=== PATIENT | female | born 1965 | race African-American/Black ===

== ENCOUNTER 2024-10-24 09:35 | Inpatient (IN) | payer MEDICAID, OTHER ==
[~2024-10-24] VITALS: Ht 162.6 cm; Wt 84.9 kg
--- NOTE | 2024-10-24 09:50 | ECG ---
[facility] Test Date: 2024-10-24 Test Time: 09:34:42 Pat Name: SHARON ANDERS Department: ED Room: Gender: F [employer] Service Sales Exec: RAMÍREZ : 1965 Requested By: JAREK MCNEIL Order Number: [id number] Reading MD: Amado Marcial Measurements Intervals [place]bin Rate: 70 P: 16 AK: 131 QRS: 35 QRSD: 63 T: 234 QT: 527 QTc: 569 Interpretive Statements Sinus rhythm Borderline repolarization abnormality Prolonged QT interval Electronically Signed On 10-24-2024 18:49:09 PDT by Amado Marcial Please click the below link to view image of tracing.
--- NOTE | 2024-10-24 10:19 | ED.PDOC ---
History of Present Illness HPI Comments 58 y/o F, with no significant history, is BIBA for c/c of nonradiating, substernal chest pain, with associated shortness of breath and nausea. Patient endorses on 3x day history of progressively worsening symptoms following initial, unprovoked and atraumatic onset. Patient received 162mg of ASA by EMS personal after taking some, herself, prior to calling, in addition to 0.4mg NTG, with moderate improvement. No endorsement of any recent travel, injuries, stressors, strenuous activities, sick contact, or pertinent medical, surgical, or social history. Positive family history of cardiac disease. Denial of any nausea, vomiting, fever, chills, or further associated symptoms. Chief Complaint: Chest Pain Time Seen by MD: 09:30 Primary Care Provider: NONE Reviewed Notes: Nurses Notes, Wind Turbine Engineer Notes, Medications, Allergies Allergies: Coded Allergies: NO KNOWN ALLERGIES (Unverified , 10/20/12) Information Source: Patient, Emergency Med Personnel Mode of Arrival: EMS Severity: Moderate Timing: Days Duration: Since onset Prehospital treatment: 12 Lead EKG, Accucheck, ASA, Um Nurse, NTG Past Medical History PAST MEDICAL HISTORY: UTI'S Surgical History: Denies all surgeries ENTERPRISE MOBILITY ARCHITECT History: Denies all ENTERPRISE MOBILITY ARCHITECT Hx Family History Family History: Family hx of heart marilyn Social History Smoker: Non-Smoker Alcohol: Denies ETOH Use Drugs: Denies Drug Use Lives In: Home All Other Systems: Reviewed and Negative (Comprehensive systems review obtained and negative except for what is stated in the HPI.) Physical Exam General Appearance: Moderate Distress HEENT: Normal ENT Inspection, Pharynx Normal, TMs Normal Neck: Full Range of Motion, Non-Tender, Normal, Normal Inspection Respiratory: Chest Non-Tender, Lungs Clear, No Accessory Muscle Use, No Respiratory Distress, Normal Breath Sounds Cardiovascular: No Edema, No JVD, No Murmur, No Gallop, Normal Peripheral Pulses, Regular Rate/Rhythm Breast Exam: Deferred Gastrointestinal: No Organomegaly, Non Tender, No Pulsatile Mass, Normal Bowel Sounds, Soft Genitalia: Deferred Pelvic: Deferred Rectal: Deferred Extremities: No calf tenderness, Normal capillary refill, Normal inspection, Normal range of motion, Non-tender, No pedal edema Musculoskeletal : Apperance: Normal Neurologic: Alert, sawmill supervisor II-XII nml as Tested, No Motor Deficits, Normal Affect, Normal Mood, No Sensory Deficits Cerebellar Function: NOT DONE Reflexes: NOT DONE Skin: Dry, Normal Color, Warm Peripheral Pulses: 3+ Radial (R), 3+ Radial (L) Lymphatic: No Adenopathy Was a procedure done? Was a procedure done?: No EKG EKG : Cardiac Rhythm: NSR Differential Dx Considerations may include: [place], PE, ACS, URI, PNA, angina, anxiety, viral syndrome, gastritis, among others X-Ray, Labs, Meds, VS Vital Signs Date Time Temp Pulse Resp B/P (MAP) Pulse Ox O2 Delivery O2 Flow Rate FiO2 10/24/24 12:14 97.2 57 16 136/71 (92) 96 97.2 10/24/24 12:14 57 16 96 Room Air 10/24/24 11:17 60 20 122/68 10/24/24 10:40 68 20 95 Room Air* 0 21 10/24/24 10:36 68 20 126/78 10/24/24 09:38 97.9 74 16 123/75 94 97.9 10/24/24 09:35 70 Lab Test 10/24/24 11:51 10/24/24 10:57 10/24/24 09:55 Range/Units Urine Color Pending Urine Clarity Pending Urine pH Pending Urine Specific [place] Pending Urine Protein Pending Urine Ketones Pending Urine Blood Pending Urine Nitrite Pending Urine Bilirubin Pending Urine Urobilinogen Pending Urine Leukocyte Esterase Pending Urine RBC Pending Urine Microscopic WBC Pending Urine Squamous Epithelial Cells Pending Urine Bacteria Pending Urine Glucose Pending Troponin I High Sensitivity 11 13 </=34 ng/L White Blood Count 6.3 4.4-10.8 10^3/uL Red Blood Count 4.77 4.0-5.20 10^6/uL Hemoglobin 14.6 12.2-16.2 g/dL Hematocrit 42.2 36.0-46.0 % Mean Corpuscular Volume 88.4 80.0-100.0 fL Mean Corpuscular Hemoglobin 30.7 28.0-32.0 pg Mean Corpuscular Hemoglobin Concent 34.7 32.0-36.0 g/dL Red Cell Distribution Width 13.9 11.8-14.3 % Platelet Count 215 140-450 10^3/uL Mean Platelet Volume 8.6 6.9-10.8 fL Neutrophils (%) (Auto) 63.6 37.0-80.0 % Lymphocytes (%) (Auto) 29.6 10.0-50.0 % Monocytes (%) (Auto) 4.5 0.0-12.0 % Eosinophils (%) (Auto) 1.9 0.0-7.0 % Basophils (%) (Auto) 0.4 0.0-2.0 % Neutrophils # (Auto) 4.0 1.6-8.6 10 ^3/uL Lymphocytes # (Auto) 1.9 0.4-5.4 10 ^3/uL Monocytes # (Auto) 0.3 0-1.3 10 ^3/uL Eosinophils # (Auto) 0.1 0-0.8 10 ^3/uL Basophils # (Auto) 0 0-0.2 10 ^3/uL Nucleated Red Blood Cells 0.0 % Sodium Level 142 136-145 mmol/L Potassium Level 3.7 3.5-5.1 mmol/L Chloride Level 105 98-107 mmol/L Carbon Dioxide Level 30 20-31 mmol/L Anion Gap 7 5-15 Blood Urea Nitrogen 10 9-23 mg/dL Creatinine 0.84 0.550-1.02 mg/dL Glomerular Filtration Rate Calc 82 >90 mL/min BUN/Creatinine Ratio 11.9 10.0-20.0 Serum Glucose 133 H 74-106 mg/dL Calcium Level 9.6 8.7-10.4 mg/dL Current Medications Medications (Trade) Dose Ordered Sig/[place] Route Start Time Stop Time Status Last Admin Morphine Sulfate 4 mg ONCE ONCE IV 10/24/24 09:45 10/24/24 09:46 DC 10/24/24 10:36 Ondansetron HCl (Zofran) 4 mg ONCE ONCE IV 10/24/24 09:45 10/24/24 09:46 DC 10/24/24 10:35 Patient alert. Complaining of chest pain. Vitals stable. Answering all questions. She has been having on and off chest pain for three days. Was given aspirin nitro in the field. Was given morphine. Was given Zofran. Cardiac marker within normal limits. Echocardiogram. Cardiology consultation. Continues to have chest pain. Unstable for transfer. Explained to the patient. Continue to monitor. [facility] approved inpatient admission [id number]. Time of 1ST Reevaluation: 10:00 Reevaluation 1ST: Unchanged Patient Education/Counseling: Diagnosis, Treatment, Need For Follow Up Family Education/Counseling: No Family Present SEPSIS Sepsis Screen Date sepsis recognized/suspect: Oct 24, 2024 Time Sepsis recognized/suspect: 937 Recent Procedure: No On Antibiotic Therapy: No Respiratory Rate >20: No Heart Rate >90: No Temp<36 C (96.8 F) or >38.3 C: No SBP <90 or MAP <65 mmHG: No New Acute Mental Status Change: No Is the patient on CPAP, BIPAP,: No Physician Orders Chest Portable (10/24/24 09:37) Urinalysis (10/24/24 09:37) Troponin-I Hs (10/24/24 12:37) Vital Signs Date Time Temp Pulse Resp B/P (MAP) Pulse Ox O2 Delivery O2 Flow Rate FiO2 10/24/24 12:14 97.2 57 16 136/71 (92) 96 97.2 10/24/24 12:14 57 16 96 Room Air 10/24/24 11:17 60 20 122/68 10/24/24 10:40 68 20 95 Room Air* 0 21 10/24/24 10:36 68 20 126/78 10/24/24 09:38 97.9 74 16 123/75 94 97.9 10/24/24 09:35 70 Laboratory Tests Test 10/24/24 09:55 White Blood Count 6.3 10^3/uL (4.4-10.8) Medications Medications Dose Ordered Sig/[place] Route Start Time Stop Time Status Last Admin Dose Admin Morphine Sulfate 4 mg ONCE ONCE IV 10/24/24 09:45 10/24/24 09:46 DC 10/24/24 10:36 Ondansetron HCl 4 mg ONCE ONCE IV 10/24/24 09:45 10/24/24 09:46 DC 10/24/24 10:35 Departure 1 Departure Time of Disposition: 10:55 Impression: Primary Impression: Chest pain of unknown etiology Disposition: ADMITTED INPATIENT Admit to: Med Surg Condition: Guarded Critical Care Note Critical Care Time?: Yes (90 min-critical care time only) Stability Stability form required: No Heart Score Heart Score: Heart Score Response (Comments) Value History Slightly Suspicious 0 EKG Normal 0 Age 45-64 1 Risk Factors 1 or 2 risk factors 1 Troponin Normal limit 0 Total 2 I personally scribed for JAREK MCNEIL MD ([email or web address]) on 10/24/24 at 10:19. Electronically submitted by Rashawn Johnson [email or web address]). JAREK MCNEIL MD Oct 24, 2024 10:19
--- NOTE | 2024-10-24 10:21 | DVH ---
CHEST RADIOGRAPH Indication: sob Technique: Single frontal view of the chest was obtained COMPARISON: None FINDINGS: Lines and Tubes: None Lungs: Clear Pleura: No effusion. No pneumothorax. Cardiomediastinal contours: Unremarkable Bones: Unremarkable IMPRESSION: No acute disease.
[2024-10-24 10:22] LABS: Hematocrit 42.2 % (36.0-46.0); Hemoglobin 14.6 g/dL (12.2-16.2); Mean Corpuscular Hemoglobin 30.7 pg (28.0-32.0); Mean Corpuscular Volume 88.4 fL (80.0-100.0); Nucleated Red Blood Cells % 0.0 %
[2024-10-24 10:29] LABS: Chloride 105 mmol/L (98-107); Potassium 3.7 mmol/L (3.5-5.1); Sodium 142 mmol/L (136-145)
[2024-10-24 10:30] LABS: Anion Gap 7 (5-15); Calcium 9.6 mg/dL (8.7-10.4); Carbon Dioxide 30 mmol/L (20-31)
[2024-10-24 10:35] LABS: BUN/Creatinine Ratio 11.9 (10.0-20.0); Blood Urea Nitrogen 10 mg/dL (9-23)
[2024-10-24] MEDS: ONDANSETRON HCL 4 MG/2 ML VIAL IV ONE (10:35)
[2024-10-24 10:36] LABS: Glucose 133 mg/dL (74-106)
[2024-10-24] MEDS: MORPHINE SULFATE 4 MG/ML SYR/VIAL IV ONE (10:36)
[2024-10-24 10:40] VITALS: PULSE 68; RESP 20; O2SAT 95
[2024-10-24 12:41] LABS: Urine Protein, UAD Negative (Negative)
[2024-10-24] MEDS: NITROGLYCERIN 0.4 MG SL TAB SL ONE (12:57)
[2024-10-24] MEDS ORDERED: MORPHINE SULFATE INJ 2 MG/ml SYRG IV PRN (19:15)
[2024-10-24] MEDS ORDERED: NITROGLYCERIN 0.4 MG SL TAB SL PRN (19:15)
[2024-10-24] MEDS ORDERED: ONDANSETRON HCL 4 MG/2 ML VIAL IV PRN (19:15)
[2024-10-24 19:40] VITALS: PULSE 57; RESP 18; O2SAT 95
[2024-10-24 20:17] LABS: Triglycerides 102 mg/dL (< 150)
[2024-10-24 20:19] LABS: Cholesterol 180 mg/dL (< 200)
[2024-10-24 21:02] LABS: HDL Cholesterol 69 mg/dL (40-59)
--- NOTE | 2024-10-24 22:00 | DVHHP2 ---
History of Present Illness Reason for Visit: Chest pain History of Present Illness 58-year-old female presents for evaluation of chest pain. Patient endorses a three day history of intermittent substernal pressure-like chest pain that is nonradiating. She also reports episodes of shortness for breath with nausea. No cough or fever. No other acute symptoms reported. Past Medical History UTI Past Surgical History Denies Family History Heart disease Smoke: No ALCOHOL: none Drugs: None Lives: with Family Review of Systems Review of Systems Review of systems are currently negative otherwise addressed in HPI. Allergies: Coded Allergies: NO KNOWN ALLERGIES (Unverified , 10/20/12) Medications Current Medications Medications Dose Ordered Sig/[place] Route Start Time Stop Time Status Last Admin Dose Admin Aspirin 81 mg DAILY PO 10/25/24 10:00 Atorvastatin Calcium 10 mg HS PO 10/24/24 22:00 Ondansetron HCl 4 mg Q4HP PRN IV 10/24/24 19:15 Nitroglycerin 0.4 mg Q5MINP PRN SL 10/24/24 19:15 Morphine Sulfate 2 mg Q30M PRN IV 10/24/24 19:15 Exam Vital Signs Vital Signs Date Time Temp Pulse Resp B/P (MAP) Pulse Ox O2 Delivery O2 Flow Rate FiO2 10/24/24 21:00 98.1 56 19 147/72 (97) 95 98.1 10/24/24 19:40 Room Air* 0 21 Exam Gen: 58-year-old female in mild distress Skin: Warm, dry, normal color and texture, no rash. HEENT: Normocephalic atraumatic, mucous membranes moist and pink. Neck: Cervical and supraclavicular nodes normal without enlargement, trachea is midline, thyroid gland is normal without masses. Pulmonary: Clear to auscultation and percussion bilaterally. Cardiac: Regular rate and rhythm. No murmur Abdomen: Soft, nontender, nondistended, bowel sounds present all 4 quadrants, no guarding, no rigidity, no organomegaly. Extremities: No cyanosis, clubbing, no edema Neuro: Cranial nerves II through XII grossly intact, normal affect and speech, no focal motor deficits. Labs/Xrays ORDERING PHYSICIAN: JAREK MCNEIL MD PROCEDURE(s): CXRP - CHEST PORTABLE REASON: sob ORDER NUMBER(s): [id number], ACCESSION NUMBER(s): [id number] CHEST RADIOGRAPH Indication: sob Technique: Single frontal view of the chest was obtained COMPARISON: None FINDINGS: Lines and Tubes: None Lungs: Clear Pleura: No effusion. No pneumothorax. Cardiomediastinal contours: Unremarkable Bones: Unremarkable IMPRESSION: No acute disease. Labs Test 10/24/24 12:49 10/24/24 11:51 10/24/24 09:55 Range/Units Troponin I High Sensitivity 13 </=34 ng/L Triglycerides Level 102 < 150 mg/dL Cholesterol Level 180 < 200 mg/dL LDL Cholesterol 96 < 100 mg/dL HDL Cholesterol 69 H 40-59 mg/dL Thyroid Stimulating Hormone (TSH) 0.54 L 0.55-4.78 uIU/mL Urine Color Light-yellow Yellow Urine Clarity Clear Clear Urine pH 7.0 5.0-9.0 Urine Specific [place] 1.017 1.001-1.035 Urine Protein Negative Negative Urine Ketones Negative Negative Urine Blood Negative Negative /uL Urine Nitrite Negative Negative Urine Bilirubin Negative Negative Urine Urobilinogen Normal Negative mg/dL Urine Leukocyte Esterase Negative Negative /uL Urine RBC 1 0 - 4 /hpf Urine Microscopic WBC 4 0-5 /HPF Urine Squamous Epithelial Cells Few <5 /hpf Urine Bacteria Few H None Seen /hpf Urine Mucus Few None Seen Urine Glucose Normal Normal mg/dL White Blood Count 6.3 4.4-10.8 10^3/uL Red Blood Count 4.77 4.0-5.20 10^6/uL Hemoglobin 14.6 12.2-16.2 g/dL Hematocrit 42.2 36.0-46.0 % Mean Corpuscular Volume 88.4 80.0-100.0 fL Mean Corpuscular Hemoglobin 30.7 28.0-32.0 pg Mean Corpuscular Hemoglobin Concent 34.7 32.0-36.0 g/dL Red Cell Distribution Width 13.9 11.8-14.3 % Platelet Count 215 140-450 10^3/uL Mean Platelet Volume 8.6 6.9-10.8 fL Neutrophils (%) (Auto) 63.6 37.0-80.0 % Lymphocytes (%) (Auto) 29.6 10.0-50.0 % Monocytes (%) (Auto) 4.5 0.0-12.0 % Eosinophils (%) (Auto) 1.9 0.0-7.0 % Basophils (%) (Auto) 0.4 0.0-2.0 % Neutrophils # (Auto) 4.0 1.6-8.6 10 ^3/uL Lymphocytes # (Auto) 1.9 0.4-5.4 10 ^3/uL Monocytes # (Auto) 0.3 0-1.3 10 ^3/uL Eosinophils # (Auto) 0.1 0-0.8 10 ^3/uL Basophils # (Auto) 0 0-0.2 10 ^3/uL Nucleated Red Blood Cells 0.0 % Sodium Level 142 136-145 mmol/L Potassium Level 3.7 3.5-5.1 mmol/L Chloride Level 105 98-107 mmol/L Carbon Dioxide Level 30 20-31 mmol/L Anion Gap 7 5-15 Blood Urea Nitrogen 10 9-23 mg/dL Creatinine 0.84 0.550-1.02 mg/dL Glomerular Filtration Rate Calc 82 >90 mL/min BUN/Creatinine Ratio 11.9 10.0-20.0 Serum Glucose 133 H 74-106 mg/dL Calcium Level 9.6 8.7-10.4 mg/dL SEPSIS Sepsis Screen Date sepsis recognized/suspect: Oct 24, 2024 Time Sepsis recognized/suspect: 1939 Recent Procedure: No On Antibiotic Therapy: No Respiratory Rate >20: No Heart Rate >90: No Temp<36 C (96.8 F) or >38.3 C: No SBP <90 or MAP <65 mmHG: No New Acute Mental Status Change: No Is the patient on CPAP, BIPAP,: No Physician Orders Aspirin Tablet (10/25/24 10:00) Atorvastatin (Lipitor) (10/24/24 22:00) Admit (10/24/24 19:15) Ondansetron Hcl (Zofran) (10/24/24 19:15) Cardiac Diet-2gna,Lofat,Lochol (10/25/24 Breakfast) Echo 2d Mode Cardiac Dop (10/24/24 19:15) Condition: Fair (10/24/24 19:15) Bedrest With Bathroom Privileg (10/24/24 19:15) Nitroglycerin Sublingual (Ntrostat Subli (10/24/24 19:15) Morphine Sulfate Injection (10/24/24 19:15) Stat Ekg For Chest Pain (10/24/24 19:15) Notify Md Of Changes From Base (10/24/24 19:15) Space Scheduler For 24 Hours (10/24/24 19:15) Emergency Dysrhythmia Protocol (10/24/24 19:15) Rhythm Strips Once Every Shift (10/24/24 19:15) Oxygen By Nasal Cannula (10/24/24 19:15) Basic Metabolic Panel (10/25/24 04:00) * Cardiology Consult (10/24/24 19:15) Magnesium (10/25/24 04:00) Thyroid Panel (10/24/24 21:57) Vital Signs Date Time Temp Pulse Resp B/P (MAP) Pulse Ox O2 Delivery O2 Flow Rate FiO2 10/24/24 21:00 98.1 56 19 147/72 (97) 95 98.1 10/24/24 19:40 57 18 95 Room Air* 0 21 10/24/24 19:30 98.1 57 18 158/71 (100) 95 98.1 10/24/24 18:14 97.4 49 16 161/77 (105) 98 97.4 10/24/24 15:35 98.0 74 20 126/64 (84) 98 98.0 Assessment/Plan Assessment/Plan Assessment Chest pain rule out ACS Essential hypertension Plan Admit the patient to telemetry to the hospitalist ACS protocol Cardiology consultation Echocardiogram pending Thyroid panel pending Continue treatment per orders. Plan discussed with: Patient My Orders Orders - PRAMOD ERIC Procedure Category Date Status Time Aspirin Tablet PHA 10/25/24 In Process 10:00 Atorvastatin (Lipitor) PHA 10/24/24 In Process 22:00 Admit ADMIT 10/24/24 Transmitted 19:15 Ondansetron Hcl PHA 10/24/24 In Process (Zofran) 19:15 Cardiac DIET 10/25/24 Transmitted Diet-2gna,Lofat,Lochol Breakfast Echo 2d Mode Cardiac US 10/24/24 Logged DOP 19:15 Condition: Fair MELA 10/24/24 In Process 19:15 Bedrest With Bathroom MELA 10/24/24 In Process Privileg 19:15 Nitroglycerin PHA 10/24/24 In Process Sublingual (Ntrostat 19:15 Morphine Sulfate PHA 10/24/24 In Process Injection 19:15 Stat Ekg For Chest MELA 10/24/24 In Process Pain 19:15 Notify Md Of Changes MELA 10/24/24 In Process From Base 19:15 Space Scheduler For MELA 10/24/24 In Process 24 Hours 19:15 Emergency Dysrhythmia MELA 10/24/24 In Process Protocol 19:15 Rhythm Strips Once MELA 10/24/24 In Process Every Shift 19:15 Oxygen By Nasal RT 10/24/24 Transmitted Cannula 19:15 Basic Metabolic Panel LAB 10/25/24 Verified 04:00 * Cardiology Consult CONS 10/24/24 Transmitted 19:15 Magnesium LAB 10/25/24 Verified 04:00 Thyroid Panel LAB 10/24/24 Transmitted 21:57 Date of Service: Oct 24, 2024 Billing Provider: PRAMOD ERIC Common Visit Codes: [id number] INP/OBS CARE (HIGH) PRAMOD ERIC Oct 24, 2024 22:00
[2024-10-24 22:04] VITALS: BP 141/83; PULSE 54; RESP 18; TEMP 98.2; O2SAT 91
[2024-10-24] MEDS: ATORVASTATIN 20 MG TAB PO SCH (23:42)
[2024-10-25] VITALS (9 sets, daily range): BP systolic 114–147; BP diastolic 76–95; PULSE 50–66; RESP 16–18; TEMP 97.5–98.2; O2SAT 96–100
[2024-10-25 06:11] LABS: Chloride 104 mmol/L (98-107); Potassium 4.1 mmol/L (3.5-5.1); Sodium 142 mmol/L (136-145)
[2024-10-25 06:12] LABS: Anion Gap 7 (5-15); Carbon Dioxide 31 mmol/L (20-31)
[2024-10-25 06:13] LABS: Calcium 9.4 mg/dL (8.7-10.4)
[2024-10-25 06:17] LABS: Glucose 105 mg/dL (74-106)
[2024-10-25 06:18] LABS: BUN/Creatinine Ratio 9.6 (10.0-20.0); Magnesium 2.0 mg/dL (1.6-2.6)
[2024-10-25 06:19] LABS: Blood Urea Nitrogen 8 mg/dL (9-23)
--- NOTE | 2024-10-25 11:43 | DVHCONRES ---
Date Seen: Oct 25, 2024 Resident Creating Document: JONATHAN BROWN RESIDENT Referring Physician PRAMOD ERICCNTyrell Reason for Consultation Chest pain History of Present Illness The patient reports a 3-day history of intermittent substernal chest pain, occasionally radiating to the left shoulder and neck. Pain is described as pressure-like, non-radiating initially, but worsens with slight exertion and also patient complains of left neck and shoulder pain. On palpation of the costochondral junction, pain is reproducible and tender. She also reports GERD like symptoms and nausea, but denies fever, cough, vomiting, or recent illness. She endorses constipation and inability to burp. She is also bradycardia with HR between 50-55-66 Currently, chest discomfort persists intermittently but is non-progressive. Patient feels under stress, is obese (BMI ~30.7), and works as a superintendent drivers. Family history significant for coronary artery disease in father. No history of diabetes mellitus, smoking, or thyroid disease. Patient drinks alcohol socially. Todays Progress, Treatment, and Relevant Results * Treatment to date: ASA 81 mg, atorvastatin 10 mg, morphine. * Vital signs: BP 147/92 and 144/95 mmHg, HR bradycardic (5055 bpm), no peripheral edema. * ECG (10/24/24): Sinus rhythm, borderline repolarization abnormality, prolonged QTc 569 ms. * CXR (10/24/24): Lungs clear, no effusion, no acute disease. * Labs: * Chemistry: Na 142, K 4.1, Mg 2.0, Ca 9.4 (all normal); BUN 8 (low), Creatinine 0.83; HbA1c 5.8 (prediabetes); Lipids: Cholesterol 180, LDL 96, HDL 69 (elevated protective). * Hematology: WBC 6.3, Hgb 14.6, Plt 215 within normal range. * Urine: Negative for infection. * Troponins: 13 - 11 - 13 ng/L (negative, stable). * Echocardiogram: Pending. * ESR/CRP: Ordered, pending. Past Medical History Hypertension (untreated), prior UTI. Past Surgical History Denies. Family History: Alcoholism G8 MOTHER FH: dementia Family History Father with CAD. Social History No smoking, occasional alcohol, no drug use. Lives with family. Works as business consultant. Allergies: Coded Allergies: NO KNOWN ALLERGIES (Unverified , 8/23/13) Current Medications Current Medications Medications (Trade) Dose Ordered Sig/[place] Route PRN Reason Start Time Stop Time Status Last Admin Aspirin 81 mg DAILY PO 10/25/24 10:00 10/25/24 08:32 Atorvastatin Calcium (Lipitor) 10 mg HS PO 10/24/24 22:00 10/24/24 23:42 Ondansetron HCl (Zofran) 4 mg Q4HP PRN IV NAUSEA / VOMITING 10/24/24 19:15 Nitroglycerin (Ntrostat Sublingual) 0.4 mg Q5MINP PRN SL FOR CHEST PAIN 10/24/24 19:15 Morphine Sulfate 2 mg Q30M PRN IV FOR CHEST PAIN 10/24/24 19:15 Review of Systems * General: Denies fever, chills, weight loss. * Cardiac: Chest pain, exertional worsening, bradycardia. No palpitations, no syncope. * Respiratory: no cough, no wheezing. * GI: Constipation, bloating, nausea. No vomiting. * Neuro: No dizziness, no focal weakness. * : No dysuria, no hematuria. Vital Signs Vital Signs Date Time Temp Pulse Resp B/P (MAP) Pulse Ox O2 Delivery O2 Flow Rate FiO2 10/25/24 09:00 97.6 55 16 147/78 (101) 98 97.6 10/25/24 08:00 Room Air* 0 21 Physical Exam * General: Obese female, alert, mildly distressed with chest discomfort. * CV: Regular rate and rhythm, bradycardic 5055 bpm. No murmurs, rubs, or gallops. * Resp: Clear breath sounds bilaterally. * Chest wall: Reproducible tenderness at left costochondral junction. * Abdomen: Soft, mild constipation-related distension. * Extremities: No edema, pulses intact. Labs/Diagnostic Data Labs Test 10/25/24 05:32 10/24/24 12:49 10/24/24 11:51 10/24/24 09:55 Range/Units Sodium Level 142 136-145 mmol/L Potassium Level 4.1 3.5-5.1 mmol/L Chloride Level 104 98-107 mmol/L Carbon Dioxide Level 31 20-31 mmol/L Anion Gap 7 5-15 Blood Urea Nitrogen 8 L 9-23 mg/dL Creatinine 0.83 0.550-1.02 mg/dL Glomerular Filtration Rate Calc 83 >90 mL/min BUN/Creatinine Ratio 9.6 L 10.0-20.0 Serum Glucose 105 74-106 mg/dL Hemoglobin A1c 5.8 H <5.7 % A1C Calcium Level 9.4 8.7-10.4 mg/dL Magnesium Level 2.0 1.6-2.6 mg/dL Troponin I High Sensitivity 13 </=34 ng/L Triglycerides Level 102 < 150 mg/dL Cholesterol Level 180 < 200 mg/dL LDL Cholesterol 96 < 100 mg/dL HDL Cholesterol 69 H 40-59 mg/dL Thyroid Stimulating Hormone (TSH) 0.54 L 0.55-4.78 uIU/mL Urine Color Light-yellow Yellow Urine Clarity Clear Clear Urine pH 7.0 5.0-9.0 Urine Specific [place] 1.017 1.001-1.035 Urine Protein Negative Negative Urine Ketones Negative Negative Urine Blood Negative Negative /uL Urine Nitrite Negative Negative Urine Bilirubin Negative Negative Urine Urobilinogen Normal Negative mg/dL Urine Leukocyte Esterase Negative Negative /uL Urine RBC 1 0 - 4 /hpf Urine Microscopic WBC 4 0-5 /HPF Urine Squamous Epithelial Cells Few <5 /hpf Urine Bacteria Few H None Seen /hpf Urine Mucus Few None Seen Urine Glucose Normal Normal mg/dL White Blood Count 6.3 4.4-10.8 10^3/uL Red Blood Count 4.77 4.0-5.20 10^6/uL Hemoglobin 14.6 12.2-16.2 g/dL Hematocrit 42.2 36.0-46.0 % Mean Corpuscular Volume 88.4 80.0-100.0 fL Mean Corpuscular Hemoglobin 30.7 28.0-32.0 pg Mean Corpuscular Hemoglobin Concent 34.7 32.0-36.0 g/dL Red Cell Distribution Width 13.9 11.8-14.3 % Platelet Count 215 140-450 10^3/uL Mean Platelet Volume 8.6 6.9-10.8 fL Neutrophils (%) (Auto) 63.6 37.0-80.0 % Lymphocytes (%) (Auto) 29.6 10.0-50.0 % Monocytes (%) (Auto) 4.5 0.0-12.0 % Eosinophils (%) (Auto) 1.9 0.0-7.0 % Basophils (%) (Auto) 0.4 0.0-2.0 % Neutrophils # (Auto) 4.0 1.6-8.6 10 ^3/uL Lymphocytes # (Auto) 1.9 0.4-5.4 10 ^3/uL Monocytes # (Auto) 0.3 0-1.3 10 ^3/uL Eosinophils # (Auto) 0.1 0-0.8 10 ^3/uL Basophils # (Auto) 0 0-0.2 10 ^3/uL Nucleated Red Blood Cells 0.0 % Assessment 1. Musculoskeletal chest pain / costochondritis (reproducible tenderness, improves with palpation). 2. Stable angina exertional worsening, CAD family history. Chest pain likely musculoskeletal (costochondritis vs cervical radiculopathy) versus atypical angina. Martinez Findings: * Normal troponins, normal CXR. * EKG: prolonged QTc (569 ms), borderline repolarization abnormality. * HbA1c 5.8 = prediabetes. * HDL high (protective), LDL controlled. * No acute infection (WBC, urine, CRP pending). * Echo pending for structural evaluation. Risk Scores: * HEART score: ~4 (moderate risk: history + risk factors, normal troponin, abnormal EKG). * ASCVD risk: Elevated due to HTN, obesity, family history. 3. Gastroesophageal reflux / bloating constipation, inability to burp. 4. Pericarditis (less likely no pericardial rub, troponins normal). 5. Arrhythmic risk due to prolonged QTc. Plan/Recommendation Plan Cardiology: * Continue ASA 81 mg daily, atorvastatin 10 mg daily. * Hold morphine; avoid further opioids/QT-prolonging meds. * Monitor telemetry for bradycardia and arrhythmias (given QTc prolongation). * Pending echocardiogram evaluate LV function, wall motion, valvular disease. * Monitor ESR/CRP to rule out inflammatory cardiac conditions. * Ordering a stress test Electrolytes & Metabolic: * Maintain K > 4.0, Mg > 2.0 to reduce QT risk. * Recheck BMP/Mg daily. * Sludge Control Attendant on lifestyle: DASH diet, weight reduction, exercise. * Monitor HbA1c; prediabetes counseling. Hypertension: * Started low-dose antihypertensive ( losartan) 25 OD * Monitor inpatient BP trend. GI: * Symptomatic treatment for constipation (stool softener, hydration). * Consider GERD prophylaxis with PPI trial if chest discomfort persists. Prophylaxis (Inpatient): * DVT prophylaxis: lovenox sc 40 * GI prophylaxis: PPI if NSAIDs used. * Early ambulation encouraged. Discussed in detail with the attending physician Dr. Ortiz and he agreed upon the suggested plan. Case discussed in detail with the patient and RN. Plan discussed with: Patient Visit Coding Cardiology RES Date of Service: Oct 25, 2024 Billing Provider: AKANKSHA ORTIZ MD Cardiology Common Codes: [id number] INP/OBS CARE (High) JONATHAN BROWN RESIDENT Oct 25, 2024 11:43
--- NOTE | 2024-10-25 12:33 | DVHPN2 ---
Subjective The patient is seen and examined at bedside. The patient is still complain of chest discomfort. The patient finished one part of the stress test. Reviewed: Care Plan, H&P, Labs, Medications, Previous Orders, Radiology Changes from previous H/P or p: No Changes Objective Vitals Vital Signs Date Time Temp Pulse Resp B/P (MAP) Pulse Ox O2 Delivery O2 Flow Rate FiO2 10/25/24 09:00 97.6 55 16 147/78 (101) 98 97.6 10/25/24 08:00 Room Air* 0 21 Intake/Output Intake and Output 10/25/24 07:00 Intake Total 240 ml Balance 240 ml Intake Oral 240 ml # Voids 4 General Appearance: Alert, Oriented X3, Cooperative, No acute distress HEENT: Atraumatic, PERRLA, EOMI, Mucous membr. moist/pink Neck: Supple Lungs: Clear to auscultation, Normal air movement Cardiovascular: Regular rate, Normal S1, Normal S2, No murmurs, Gallops Abdomen: Normal bowel sounds, Soft, No tenderness Neuro: Cranial nerves 3-12 NL Psych/Mental Status: Mental status NL Medications Current Medications Medications Dose Ordered Sig/[place] Route Start Time Stop Time Status Last Admin Dose Admin Aspirin 81 mg DAILY PO 10/25/24 10:00 10/25/24 08:32 81 MG Atorvastatin Calcium 10 mg HS PO 10/24/24 22:00 10/24/24 23:42 10 MG Ondansetron HCl 4 mg Q4HP PRN IV 10/24/24 19:15 Nitroglycerin 0.4 mg Q5MINP PRN SL 10/24/24 19:15 Morphine Sulfate 2 mg Q30M PRN IV 10/24/24 19:15 Enoxaparin Sodium 40 mg DAILY SC 10/26/24 10:00 UNV Losartan Potassium 25 mg DAILY PO 10/26/24 10:00 UNV Laboratory Results Laboratory Tests 10/24/24 09:55 10/25/24 05:32 Chemistry Test 10/25/24 05:32 Calcium Level 9.4 mg/dL (8.7-10.4) Magnesium Level 2.0 mg/dL (1.6-2.6) Lipid panel Test 10/24/24 12:49 Cholesterol Level 180 mg/dL (< 200) HDL Cholesterol 69 mg/dL (40-59) H Triglycerides Level 102 mg/dL (< 150) HgA1c, TSH Test 10/24/24 12:49 10/25/24 05:32 Thyroid Stimulating Hormone (TSH) 0.54 uIU/mL (0.55-4.78) L Hemoglobin A1c 5.8 % A1C (<5.7) H Urinalysis Test 10/24/24 11:51 Urine Color Light-yellow (Yellow) Urine Clarity Clear (Clear) Urine pH 7.0 (5.0-9.0) Urine Specific [place] 1.017 (1.001-1.035) Urine Protein Negative (Negative) Urine Ketones Negative (Negative) Urine Blood Negative /uL (Negative) Urine Nitrite Negative (Negative) Urine Bilirubin Negative (Negative) Urine Urobilinogen Normal mg/dL (Negative) Urine Leukocyte Esterase Negative /uL (Negative) Urine RBC 1 /hpf (0 - 4) Urine Microscopic WBC 4 /HPF (0-5) Urine Squamous Epithelial Cells Few /hpf (<5) Urine Bacteria Few /hpf (None Seen) H Urine Mucus Few (None Seen) Urine Glucose Normal mg/dL (Normal) Labs and/or images reviewed: Labs reviewed by me Assessment/Plan Assessment/Plan Chest pain rule out ACS Essential hypertension Continuing current management. Continuing with hypertensive medication. Waiting for stress test to finish. Appreciate language specialist's input. This medical document was created using an electronic medical record system with [employer] computerized dictation system. Although this document has been carefully reviewed, there may still be some phonetic and typographical errors. These areas are purely typographical due to imperfections of the software programs, and do not reflect any compromise in the patient's medical care. Plan discussed with: Patient Date of Service: Oct 25, 2024 Billing Provider: BE MALIK MD Common Visit Codes: [id number] INP/OBS CARE(HIGH) BE MALIK MD Oct 25, 2024 12:33
[2024-10-25] MEDS ORDERED: POLYETHYLENE GLYCOL 17 GM PWDR PO PRN (16:15)
--- NOTE | 2024-10-25 20:08 | DVHINCON2 ---
Date Seen: Oct 25, 2024 Referring Physician Familia Reason for Consultation Chest pain History of Present Illness This is a 58 year old female with a PMH of HTN who presented to the ED with complaints of intermittent substernal chest pain, occasionally radiating to the left shoulder and neck. Pain is described as pressure-like, non-radiating initially, but worsens with slight exertion and also patient complains of left neck and shoulder pain. On palpation of the costochondral junction, pain is reproducible and tender. Patient also reports GERD like symptoms and nausea, but denies fever, cough, vomiting, or recent illness. She endorses constipation and inability to burp. She is also bradycardia with HR between 50-55-66. Currently, chest discomfort persists intermittently but is non-progressive. Kasandra ent feels under stress, is obese (BMI ~30.7), and works as a operator and truck driver. ECG (10/24/24): Sinus rhythm, borderline repolarization abnormality, prolonged QTc 569 ms. Chest x-ray (10/24/24): Lungs clear, no effusion, no acute disease. Chemistry: Na 142, K 4.1, Mg 2.0, Ca 9.4 (all normal); BUN 8 (low), Creatinine 0.83; HbA1c 5.8 (prediabetes); Lipids: Cholesterol 180, LDL 96, HDL 69 (elevated protective). Hematology: WBC 6.3, Hgb 14.6, Plt 215 within normal range. Urine: Negative for infection. Troponins: 13 - 11 - 13 ng/L (negative, stable). Patient was admitted to the hospital. I am asked to consult on this patient. Past Medical History Hypertension (untreated), prior UTI. Past Surgical History Denies. Family History: Alcoholism G8 MOTHER FH: dementia Allergies: Coded Allergies: NO KNOWN ALLERGIES (Unverified , 10/20/12) Current Medications Current Medications Medications (Trade) Dose Ordered Sig/[place] Route PRN Reason Start Time Stop Time Status Last Admin Aspirin 81 mg DAILY PO 10/25/24 10:00 10/25/24 08:32 Atorvastatin Calcium (Lipitor) 10 mg HS PO 10/24/24 22:00 10/24/24 23:42 Ondansetron HCl (Zofran) 4 mg Q4HP PRN IV NAUSEA / VOMITING 10/24/24 19:15 Nitroglycerin (Ntrostat Sublingual) 0.4 mg Q5MINP PRN SL FOR CHEST PAIN 10/24/24 19:15 Morphine Sulfate 2 mg Q30M PRN IV FOR CHEST PAIN 10/24/24 19:15 Enoxaparin Sodium (Lovenox) 40 mg DAILY SC 10/26/24 10:00 UNV Losartan Potassium (Cozaar Tablet) 25 mg DAILY PO 10/26/24 10:00 UNV Review of Systems * General: Denies fever, chills, weight loss. * Cardiac: Chest pain, exertional worsening, bradycardia. No palpitations, no syncope. * Respiratory: no cough, no wheezing. * GI: Constipation, bloating, nausea. No vomiting. * Neuro: No dizziness, no focal weakness. * : No dysuria, no hematuria. Vital Signs Vital Signs Date Time Temp Pulse Resp B/P (MAP) Pulse Ox O2 Delivery O2 Flow Rate FiO2 10/25/24 09:00 97.6 55 16 147/78 (101) 98 97.6 10/25/24 08:00 Room Air* 0 21 Physical Exam GENERAL: Alert and oriented x 3. No acute distress. Obese. EYES: PERRL, EOMI. Anicteric. HENT: Moist mucous membranes. LUNGS: Clear to auscultation bilaterally. CARDIOVASCULAR: Irregular rate and rhythm. ABDOMEN: Soft, nontender and nondistended. EXTREMITIES: No edema. NEUROLOGIC: No focal neurological deficits. SKIN: Warm, dry. Labs/Diagnostic Data Labs Test 10/25/24 11:50 10/25/24 05:32 10/24/24 12:49 10/24/24 11:51 Range/Units Troponin I High Sensitivity 11 </=34 ng/L C-Reactive Protein High Sensitivity 0.99 <1.0 mg/dL Sodium Level 142 136-145 mmol/L Potassium Level 4.1 3.5-5.1 mmol/L Chloride Level 104 98-107 mmol/L Carbon Dioxide Level 31 20-31 mmol/L Anion Gap 7 5-15 Blood Urea Nitrogen 8 L 9-23 mg/dL Creatinine 0.83 0.550-1.02 mg/dL Glomerular Filtration Rate Calc 83 >90 mL/min BUN/Creatinine Ratio 9.6 L 10.0-20.0 Serum Glucose 105 74-106 mg/dL Hemoglobin A1c 5.8 H <5.7 % A1C Calcium Level 9.4 8.7-10.4 mg/dL Magnesium Level 2.0 1.6-2.6 mg/dL Triglycerides Level 102 < 150 mg/dL Cholesterol Level 180 < 200 mg/dL LDL Cholesterol 96 < 100 mg/dL HDL Cholesterol 69 H 40-59 mg/dL Thyroid Stimulating Hormone (TSH) 0.54 L 0.55-4.78 uIU/mL Urine Color Light-yellow Yellow Urine Clarity Clear Clear Urine pH 7.0 5.0-9.0 Urine Specific [place] 1.017 1.001-1.035 Urine Protein Negative Negative Urine Ketones Negative Negative Urine Blood Negative Negative /uL Urine Nitrite Negative Negative Urine Bilirubin Negative Negative Urine Urobilinogen Normal Negative mg/dL Urine Leukocyte Esterase Negative Negative /uL Urine RBC 1 0 - 4 /hpf Urine Microscopic WBC 4 0-5 /HPF Urine Squamous Epithelial Cells Few <5 /hpf Urine Bacteria Few H None Seen /hpf Urine Mucus Few None Seen Urine Glucose Normal Normal mg/dL Test 10/24/24 09:55 Range/Units White Blood Count 6.3 4.4-10.8 10^3/uL Red Blood Count 4.77 4.0-5.20 10^6/uL Hemoglobin 14.6 12.2-16.2 g/dL Hematocrit 42.2 36.0-46.0 % Mean Corpuscular Volume 88.4 80.0-100.0 fL Mean Corpuscular Hemoglobin 30.7 28.0-32.0 pg Mean Corpuscular Hemoglobin Concent 34.7 32.0-36.0 g/dL Red Cell Distribution Width 13.9 11.8-14.3 % Platelet Count 215 140-450 10^3/uL Mean Platelet Volume 8.6 6.9-10.8 fL Neutrophils (%) (Auto) 63.6 37.0-80.0 % Lymphocytes (%) (Auto) 29.6 10.0-50.0 % Monocytes (%) (Auto) 4.5 0.0-12.0 % Eosinophils (%) (Auto) 1.9 0.0-7.0 % Basophils (%) (Auto) 0.4 0.0-2.0 % Neutrophils # (Auto) 4.0 1.6-8.6 10 ^3/uL Lymphocytes # (Auto) 1.9 0.4-5.4 10 ^3/uL Monocytes # (Auto) 0.3 0-1.3 10 ^3/uL Eosinophils # (Auto) 0.1 0-0.8 10 ^3/uL Basophils # (Auto) 0 0-0.2 10 ^3/uL Nucleated Red Blood Cells 0.0 % Assessment Musculoskeletal chest pain / costochondritis (reproducible tenderness, improves with palpation). Stable angina. Exertional worsening, CAD family history. Chest pain likely musculoskeletal (costochondritis vs cervical radiculopathy) versus atypical angina. HEART score: ~4 (moderate risk: history + risk factors, normal troponin, abnormal EKG). ASCVD risk: Elevated due to HTN, obesity, family history. Gastroesophageal reflux / bloating constipation, inability to burp. Pericarditis (less likely no pericardial rub, troponins normal). Arrhythmic risk due to prolonged QTc. Plan/Recommendation I agree with your ongoing assessment and care of plan. Patient has been seen by Lalo Liao Resident on my behalf. We have discussed the plan with the patient. Continue ASA 81 mg daily, atorvastatin 10 mg daily. Hold morphine; avoid further opioids/QT-prolonging meds. Monitor telemetry for bradycardia and arrhythmias (given QTc prolongation). Pending echocardiogram evaluate LV function, wall motion, valvular disease. Monitor ESR/CRP to rule out inflammatory cardiac conditions. Ordering a stress test Maintain K > 4.0, Mg > 2.0 to reduce QT risk. Recheck BMP/Mg daily. Cable Tester on lifestyle: DASH diet, weight reduction, exercise. Monitor HbA1c; prediabetes counseling. Started low-dose antihypertensive ( losartan) 25 OD Monitor inpatient BP trend. Symptomatic treatment for constipation (stool softener, hydration). Consider GERD prophylaxis with PPI trial if chest discomfort persists. DVT prophylaxis: lovenox sc 40. GI prophylaxis: PPI if NSAIDs used. Early ambulation encouraged. Additional plan as per the hospital course. Plan discussed with: Patient NYHA Physical activity limitations: NA Date of Service: Oct 25, 2024 Billing Provider: AKANKSHA CAPELLAN MD Cardiology Common Codes: [id number] INP/OBS CARE (High) Cardiology Consultation Codes: [id number] CONSULT <45MIN AKANKSHA CAPELLAN MD Oct 25, 2024 12:50
[2024-10-25] MEDS: DOCUSATE SOD 100 MG CAP PO SCH (22:00)
[2024-10-26] VITALS (7 sets, daily range): BP systolic 137–158; BP diastolic 75–96; PULSE 53–79; RESP 16–18; TEMP 97.2–98.2; O2SAT 96–98
[2024-10-26] MEDS: REGADENOSON 0.4 MG/5 ML SYRG IV ONE ×2 (07:57)
[2024-10-26 08:07] LABS: Free Thyroxine Index 1.9 (1.2-4.9)
[2024-10-26] MEDS: ENOXAPARIN SOD 40 MG/0.4 ML SYRINGE SC SCH (10:54)
[2024-10-26] MEDS: LOSARTAN POTASSIUM 25 MG TAB PO SCH (10:58)
--- NOTE | 2024-10-26 12:21 | DVHPN2 ---
Subjective The patient is seen and examined at bedside. The patient is still complain of chest discomfort. The patient finished 2nd part of the stress test. Reviewed: Care Plan, H&P, Labs, Medications, Previous Orders, Radiology Changes from previous H/P or p: No Changes Objective Vitals Vital Signs Date Time Temp Pulse Resp B/P (MAP) Pulse Ox O2 Delivery O2 Flow Rate FiO2 10/26/24 10:58 144/85 10/26/24 09:45 98.0 79 18 98 98.0 10/26/24 07:30 Room Air* 0 21 Intake/Output Intake and Output 10/26/24 07:00 Intake Total 1315 ml Balance 1315 ml Intake Oral 1315 ml # Voids 12 # Bowel Movements 1 General Appearance: Alert, Oriented X3, Cooperative, No acute distress HEENT: Atraumatic, PERRLA, EOMI, Mucous membr. moist/pink Neck: Supple Lungs: Clear to auscultation, Normal air movement Cardiovascular: Regular rate, Normal S1, Normal S2, No murmurs, Gallops Abdomen: Normal bowel sounds, Soft, No tenderness Neuro: Cranial nerves 3-12 NL Psych/Mental Status: Mental status NL Medications Current Medications Medications Dose Ordered Sig/[place] Route Start Time Stop Time Status Last Admin Dose Admin Aspirin 81 mg DAILY PO 10/25/24 10:00 10/26/24 10:52 81 MG Atorvastatin Calcium 10 mg HS PO 10/24/24 22:00 10/25/24 23:10 10 MG Ondansetron HCl 4 mg Q4HP PRN IV 10/24/24 19:15 Nitroglycerin 0.4 mg Q5MINP PRN SL 10/24/24 19:15 Morphine Sulfate 2 mg Q30M PRN IV 10/24/24 19:15 Enoxaparin Sodium 40 mg DAILY SC 10/26/24 10:00 10/26/24 10:54 40 MG Losartan Potassium 25 mg DAILY PO 10/26/24 10:00 Docusate Sodium 100 mg BID PO 10/25/24 22:00 10/26/24 10:52 100 MG Polyethylene Glycol 17 gm DAILYPRN PRN PO 10/25/24 16:15 Laboratory Results Laboratory Tests 10/24/24 09:55 10/25/24 05:32 Urinalysis Test 10/24/24 11:51 Urine Color Light-yellow (Yellow) Urine Clarity Clear (Clear) Urine pH 7.0 (5.0-9.0) Urine Specific [place] 1.017 (1.001-1.035) Urine Protein Negative (Negative) Urine Ketones Negative (Negative) Urine Blood Negative /uL (Negative) Urine Nitrite Negative (Negative) Urine Bilirubin Negative (Negative) Urine Urobilinogen Normal mg/dL (Negative) Urine Leukocyte Esterase Negative /uL (Negative) Urine RBC 1 /hpf (0 - 4) Urine Microscopic WBC 4 /HPF (0-5) Urine Squamous Epithelial Cells Few /hpf (<5) Urine Bacteria Few /hpf (None Seen) H Urine Mucus Few (None Seen) Urine Glucose Normal mg/dL (Normal) Labs and/or images reviewed: Labs reviewed by me Assessment/Plan Assessment/Plan Chest pain rule out ACS Essential hypertension Continuing current management. Continuing with hypertensive medication. Waiting for stress test to finish. Appreciate care transitions manager's input. This medical document was created using an electronic medical record system with [employer] direct computerized dictation system. Although this document has been carefully reviewed, there may still be some phonetic and typographical errors. These areas are purely typographical due to imperfections of the software programs, and do not reflect any compromise in the patient's medical care. Plan discussed with: Patient My Orders Orders - BE MALIK MD Procedure Category Date Status Time Docusate Sodium PHA 10/25/24 In Process Capsule (Colace 22:00 Polyethylene Glycol PHA 10/25/24 In Process 17g Powder (Miralax 16:15 Cardiac DIET 10/26/24 Transmitted Diet-2gna,Lofat,Lochol Lunch Date of Service: Oct 26, 2024 Billing Provider: BE MALIK MD Common Visit Codes: [id number] INP/OBS CARE(HIGH) BE MALIK MD Oct 26, 2024 12:21
--- NOTE | 2024-10-26 22:11 | DVHPN2 ---
Progress Note - Dictate Date Seen: Oct 26, 2024 Medical Necessity Reason Pt with a Central, PICC or Fol: No Subjective Patient was seen and evaluated in follow up. Patient is complaining of chest discomfort. Patient has completed the first part of the cardiac stress test. Telemetry reviewed. vital signs Vital Sign Date Time Temp Pulse Resp B/P (MAP) Pulse Ox O2 Delivery O2 Flow Rate FiO2 10/26/24 17:00 97.2 64 16 154/89 (110) 98 97.2 10/26/24 07:30 Room Air* 0 21 Total Intake and Output 10/25/24 10/25/24 10/26/24 15:00 23:00 07:00 Intake Total 320 ml 995 ml Balance 320 ml 995 ml medications Current Medications Medications Dose Ordered Sig/[place] Route Start Time Stop Time Status Last Admin Dose Admin Aspirin 81 mg DAILY PO 10/25/24 10:00 10/26/24 10:52 81 MG Atorvastatin Calcium 10 mg HS PO 10/24/24 22:00 10/26/24 20:44 10 MG Ondansetron HCl 4 mg Q4HP PRN IV 10/24/24 19:15 Nitroglycerin 0.4 mg Q5MINP PRN SL 10/24/24 19:15 Morphine Sulfate 2 mg Q30M PRN IV 10/24/24 19:15 Enoxaparin Sodium 40 mg DAILY SC 10/26/24 10:00 10/26/24 10:54 40 MG Losartan Potassium 25 mg DAILY PO 10/26/24 10:00 Docusate Sodium 100 mg BID PO 10/25/24 22:00 10/26/24 20:44 100 MG Polyethylene Glycol 17 gm DAILYPRN PRN PO 10/25/24 16:15 objective GENERAL: Alert and oriented x 3. No acute distress. Obese. EYES: PERRL, EOMI. Anicteric. HENT: Moist mucous membranes. LUNGS: Clear to auscultation bilaterally. CARDIOVASCULAR: Irregular rate and rhythm. ABDOMEN: Soft, nontender and nondistended. EXTREMITIES: No edema. NEUROLOGIC: No focal neurological deficits. SKIN: Warm, dry. laboratory and microbiology Laboratory Tests 10/25/24 05:32 10/24/24 09:55 Test 10/25/24 05:32 Range/Units Serum Glucose 105 74-106 mg/dL Problem List Musculoskeletal chest pain / costochondritis (reproducible tenderness, improves with palpation). Stable angina. Exertional worsening, CAD family history. Chest pain likely musculoskeletal (costochondritis vs cervical radiculopathy) versus atypical angina. HEART score: ~4 (moderate risk: history + risk factors, normal troponin, abnormal EKG). ASCVD risk: Elevated due to HTN, obesity, family history. Gastroesophageal reflux / bloating constipation, inability to burp. Pericarditis (less likely no pericardial rub, troponins normal). Arrhythmic risk due to prolonged QTc. Assessment/Plan Continued all current supportive medical care. Aspirin, Lipitor. DVT prophylactics. Losartan. Morphine for pain management. Nitro SL. Additional plan as per the hospital course. Plan discussed with: Patient AKANKSHA CAPELLAN MD Oct 26, 2024 21:06
[2024-10-27 01:00] VITALS: BP 155/77; PULSE 54; RESP 17; TEMP 97.9; O2SAT 99
--- NOTE | 2024-10-27 01:56 | DVHSR ---
APPROVED REPORT EXAM: Two-dimensional and M-mode echocardiogram with Doppler and color Doppler. Blood Pressure: 147/92 mmHg INDICATION Chest Pain RISK FACTORS Height: 5'4", Weight: 179 DIMENSIONS LVDd4.3 (3.8-5.7cm)LA (2D)3.3 (1.9-4.0cm)Aortic Root2.9 (2.0-3.7cm) LVDs2.6 (2.5-4.0cm)LA (MM) (1.9-4.0cm)Aortic Cusp Exc1.8 (1.5-2.0cm) EF (%) 71.0 (55-70%)Rt. Atrium3.1 (1.9-4.0cm)Asc. Aorta2.9 cm IVSd0.9 (0.7-1.1cm)RV (D)2.8 (1.8-2.4cm) PWd0.8 (0.7-1.1cm) Mitral Valve MitralMitral Stenosis E wave0.77m/sMV Mean GR.mmHg A wave0.83m/sMV Peak GR.mmHg E/A ratio0.92D MVAcm2 DECEL [id number] 1/2 Timems Aortic Valve Aortic ValveAortic Stenosis V11.16m/Nino Mean GR.4mmHg V21.28m/Nino Peak GR.7mmHg LVOT Diameter2.0 (1.8-2.4cm)Doppler AVA2.85cm2 Pulmonic Valve V20.86m/s Tricuspid Valve TR Velocity2.38m/s [id number] Other Information Quality : Technically LimitedRhythm : Technically limited study due to body habitus. Conclusion LV EF IS 71% AND IS NORMAL NORMAL VALVES NORMAL RV FUNCTION NO EFFUSION
[2024-10-27 05:00] VITALS: BP 120/69; PULSE 66; RESP 18; TEMP 97.7; O2SAT 97
[2024-10-27 08:00] VITALS: PULSE 64; PULSE 94; RESP 18; O2SAT 97
[2024-10-27 09:00] VITALS: BP 120/65; PULSE 64; RESP 18; TEMP 98.6; O2SAT 97
--- NOTE | 2024-10-27 09:56 | DVHDS2 ---
Discharge Summary Date of Admission Oct 24, 2024 at 19:15 Date of Discharge: Oct 27, 2024 Admitting Diagnosis Chest pain rule out ACS Essential hypertension Labs/Diagnostic Data: Laboratory Results Test 10/25/24 15:06 10/25/24 12:56 10/25/24 11:50 10/25/24 05:32 Troponin I High Sensitivity 14 ng/L (</=34) Erythrocyte Sedimentation Rate 16 mm/hr (0-20) C-Reactive Protein High Sensitivity 0.99 mg/dL (<1.0) Sodium Level 142 mmol/L (136-145) Potassium Level 4.1 mmol/L (3.5-5.1) Chloride Level 104 mmol/L (98-107) Carbon Dioxide Level 31 mmol/L (20-31) Anion Gap 7 (5-15) Blood Urea Nitrogen 8 mg/dL (9-23) Creatinine 0.83 mg/dL (0.550-1.02) Glomerular Filtration Rate Calc 83 mL/min (>90) BUN/Creatinine Ratio 9.6 (10.0-20.0) Serum Glucose 105 mg/dL (74-106) Hemoglobin A1c 5.8 % A1C (<5.7) Calcium Level 9.4 mg/dL (8.7-10.4) Magnesium Level 2.0 mg/dL (1.6-2.6) Test 10/24/24 12:49 10/24/24 11:51 10/24/24 09:55 Triglycerides Level 102 mg/dL (< 150) Cholesterol Level 180 mg/dL (< 200) LDL Cholesterol 96 mg/dL (< 100) HDL Cholesterol 69 mg/dL (40-59) Thyroid Stimulating Hormone (TSH) 0.54 uIU/mL (0.55-4.78) Urine Color Light-yellow (Yellow) Urine Clarity Clear (Clear) Urine pH 7.0 (5.0-9.0) Urine Specific [place] 1.017 (1.001-1.035) Urine Protein Negative (Negative) Urine Ketones Negative (Negative) Urine Blood Negative /uL (Negative) Urine Nitrite Negative (Negative) Urine Bilirubin Negative (Negative) Urine Urobilinogen Normal mg/dL (Negative) Urine Leukocyte Esterase Negative /uL (Negative) Urine RBC 1 /hpf (0 - 4) Urine Microscopic WBC 4 /HPF (0-5) Urine Squamous Epithelial Cells Few /hpf (<5) Urine Bacteria Few /hpf (None Seen) Urine Mucus Few (None Seen) Urine Glucose Normal mg/dL (Normal) White Blood Count 6.3 10^3/uL (4.4-10.8) Red Blood Count 4.77 10^6/uL (4.0-5.20) Hemoglobin 14.6 g/dL (12.2-16.2) Hematocrit 42.2 % (36.0-46.0) Mean Corpuscular Volume 88.4 fL (80.0-100.0) Mean Corpuscular Hemoglobin 30.7 pg (28.0-32.0) Mean Corpuscular Hemoglobin Concent 34.7 g/dL (32.0-36.0) Red Cell Distribution Width 13.9 % (11.8-14.3) Platelet Count 215 10^3/uL (140-450) Mean Platelet Volume 8.6 fL (6.9-10.8) Neutrophils (%) (Auto) 63.6 % (37.0-80.0) Lymphocytes (%) (Auto) 29.6 % (10.0-50.0) Monocytes (%) (Auto) 4.5 % (0.0-12.0) Eosinophils (%) (Auto) 1.9 % (0.0-7.0) Basophils (%) (Auto) 0.4 % (0.0-2.0) Neutrophils # (Auto) 4.0 10 ^3/uL (1.6-8.6) Lymphocytes # (Auto) 1.9 10 ^3/uL (0.4-5.4) Monocytes # (Auto) 0.3 10 ^3/uL (0-1.3) Eosinophils # (Auto) 0.1 10 ^3/uL (0-0.8) Basophils # (Auto) 0 10 ^3/uL (0-0.2) Nucleated Red Blood Cells 0.0 % Free Thyroxine Index 1.9 (1.2-4.9) Thyroxine (T4) 7.5 ug/dL (4.5-12.0) Triiodothyronine (T3) Uptake 25 % (24-39) Other Laboratory Tests 10/25/24 05:32 10/24/24 09:55 Brief Hx & Hospital Course: This is a 58 years old female come to emergency department because three day of intermittent some sternal pressure chest pain. The patient had episode shortness for breath with nausea. No fever chill. The patient subsequently was admitted in stress test was done. While waiting for stress test who read in chemical analyst's to cleared her for discharge the patient get very anxious and wanted to leave against medical advice. So she signed against medical advice. She fully understands without knowing the results stress test she may suffer from systemic of the heart and further damage her heart or even with the patient is still choose to leave against medical advice Physical exam: HEENT: Normocephalic atraumatic pupils equal react to light and accommodation. Extraocular muscles intact, conjunctiva pink, oropharynx moist, no thrush, no exudate. Lymphatic: No lymphadenopathy Cardiovascular exam: S1, S2 was heard. No murmurs, rubs, gallops Lung: Clear on auscultation bilaterally, no wheeze, rale, rhonchi. GI: Abdominal soft, nondistended, nontenderness, positive bowel sounds. Extremity: No crepitus, cyanosis, edema. Pedal pulses present bilateral. Full range of motion. Skin: Normal turgor, no rash. Psych: Alert, oriented x3. Neurology: No focal deficits, cranial nerve II to XII grossly intact. This medical document was created using an electronic medical record system with [employer] direct computerized dictation system. Although this document has been carefully reviewed, there may still be some phonetic and typographical errors. These areas are purely typographical due to imperfections of the software programs, and do not reflect any compromise in the patient's medical care. Condition at Discharge: Guarded Final Diagnosis/Problems List Chest pain rule out ACS Essential hypertension Discharge Disposition: AMA Discharge Instruct/Medications Scheduled Losartan Potassium (Losartan Potassium), 25 MG PO DAILY Discharge Statement: "Patient was advised to return to the ER or call 911 if any headaches, dizziness, shortness of breath, chest pain, abdominal pain, bleeding, fevers, or worsening of medical condition. Patient was counseled about treatment plan, medications, possible side effects, patientverbalized understanding. All questions were answered to the best of my ability. This discharge took greater then 30 minutes in planning, reviewing documentation, counseling the patient, and discussing with other team members." ASSESSMENT ASSESSMENT Assessment Date of Service: Oct 27, 2024 Billing Provider: BE MALIK MD Common Visit Codes: [id number] DISCH DAY >30min BE MALIK MD Oct 27, 2024 09:56
--- NOTE | 2024-10-27 09:56 | DVHPN2 ---
Subjective The patient is seen and examined at bedside. The patient is still complain of chest discomfort. The patient finished 2nd part of the stress test. Reviewed: Care Plan, H&P, Labs, Medications, Previous Orders, Radiology Objective Vitals Vital Signs Date Time Temp Pulse Resp B/P (MAP) Pulse Ox O2 Delivery O2 Flow Rate FiO2 10/27/24 05:00 97.7 66 18 120/69 (86) 97 97.7 10/26/24 20:00 Room Air* 0 21 Intake/Output Intake and Output 10/27/24 07:00 Intake Total 1700 ml Balance 1700 ml Intake Oral 1700 ml # Voids 8 # Bowel Movements 2 General Appearance: Alert, Oriented X3, Cooperative, No acute distress HEENT: Atraumatic, PERRLA, EOMI, Mucous membr. moist/pink Neck: Supple Lungs: Clear to auscultation, Normal air movement Cardiovascular: Regular rate, Normal S1, Normal S2, No murmurs, Gallops Abdomen: Normal bowel sounds, Soft, No tenderness Neuro: Cranial nerves 3-12 NL Psych/Mental Status: Mental status NL Medications Current Medications Medications Dose Ordered Sig/[place] Route Start Time Stop Time Status Last Admin Dose Admin Aspirin 81 mg DAILY PO 10/25/24 10:00 10/26/24 10:52 81 MG Atorvastatin Calcium 10 mg HS PO 10/24/24 22:00 10/26/24 20:44 10 MG Ondansetron HCl 4 mg Q4HP PRN IV 10/24/24 19:15 Nitroglycerin 0.4 mg Q5MINP PRN SL 10/24/24 19:15 Morphine Sulfate 2 mg Q30M PRN IV 10/24/24 19:15 Enoxaparin Sodium 40 mg DAILY SC 10/26/24 10:00 10/26/24 10:54 40 MG Losartan Potassium 25 mg DAILY PO 10/26/24 10:00 Docusate Sodium 100 mg BID PO 10/25/24 22:00 10/26/24 20:44 100 MG Polyethylene Glycol 17 gm DAILYPRN PRN PO 10/25/24 16:15 Laboratory Results Laboratory Tests 10/24/24 09:55 10/25/24 05:32 Urinalysis Test 10/24/24 11:51 Urine Color Light-yellow (Yellow) Urine Clarity Clear (Clear) Urine pH 7.0 (5.0-9.0) Urine Specific Gary 1.017 (1.001-1.035) Urine Protein Negative (Negative) Urine Ketones Negative (Negative) Urine Blood Negative /uL (Negative) Urine Nitrite Negative (Negative) Urine Bilirubin Negative (Negative) Urine Urobilinogen Normal mg/dL (Negative) Urine Leukocyte Esterase Negative /uL (Negative) Urine RBC 1 /hpf (0 - 4) Urine Microscopic WBC 4 /HPF (0-5) Urine Squamous Epithelial Cells Few /hpf (<5) Urine Bacteria Few /hpf (None Seen) H Urine Mucus Few (None Seen) Urine Glucose Normal mg/dL (Normal) Assessment/Plan Assessment/Plan Chest pain rule out ACS Essential hypertension Continuing current management. Continuing with hypertensive medication. Waiting for stress test to finish. Appreciate physician practice manager's input. This medical document was created using an electronic medical record system with [employer] direct computerized dictation system. Although this document has been carefully reviewed, there may still be some phonetic and typographical errors. These areas are purely typographical due to imperfections of the software programs, and do not reflect any compromise in the patient's medical care. My Orders Orders - BE MALIK MD Procedure Category Date Status Time Cardiac DIET 10/26/24 Transmitted Diet-2gna,Lofat,Lochol Lunch BE MALIK MD Oct 27, 2024 09:56
[2024-10-27] MEDS ORDERED: LOS25T PO (09:57)
[2024-10-27 13:00] VITALS: BP 142/83; PULSE 55; RESP 17; TEMP 96.6; O2SAT 98
--- NOTE | 2024-10-27 19:28 | DVHPN2 ---
Progress Note - Dictate Date Seen: Oct 27, 2024 Medical Necessity Reason Pt with a Central, PICC or Fol: No Subjective Patient was seen and evaluated in follow up. Patient has no new complaints at this time. Patient denies any cardiac symptoms. Patient is cardiac stable for discharge. Telemetry reviewed. vital signs Vital Sign Date Time Temp Pulse Resp B/P (MAP) Pulse Ox O2 Delivery O2 Flow Rate FiO2 10/27/24 08:00 64 18 97 Room Air* 0 21 10/27/24 05:00 97.7 120/69 (86) 97.7 Total Intake and Output 10/26/24 10/26/24 10/27/24 15:00 23:00 07:00 Intake Total 800 ml 900 ml Balance 800 ml 900 ml medications Current Medications Medications Dose Ordered Sig/[place] Route Start Time Stop Time Status Last Admin Dose Admin Aspirin 81 mg DAILY PO 10/25/24 10:00 10/26/24 10:52 81 MG Atorvastatin Calcium 10 mg HS PO 10/24/24 22:00 10/26/24 20:44 10 MG Ondansetron HCl 4 mg Q4HP PRN IV 10/24/24 19:15 Nitroglycerin 0.4 mg Q5MINP PRN SL 10/24/24 19:15 Morphine Sulfate 2 mg Q30M PRN IV 10/24/24 19:15 Enoxaparin Sodium 40 mg DAILY SC 10/26/24 10:00 10/26/24 10:54 40 MG Losartan Potassium 25 mg DAILY PO 10/26/24 10:00 Docusate Sodium 100 mg BID PO 10/25/24 22:00 10/26/24 20:44 100 MG Polyethylene Glycol 17 gm DAILYPRN PRN PO 10/25/24 16:15 objective GENERAL: Alert and oriented x 3. No acute distress. Obese. EYES: PERRL, EOMI. Anicteric. HENT: Moist mucous membranes. LUNGS: Clear to auscultation bilaterally. CARDIOVASCULAR: Irregular rate and rhythm. ABDOMEN: Soft, nontender and nondistended. EXTREMITIES: No edema. NEUROLOGIC: No focal neurological deficits. SKIN: Warm, dry. laboratory and microbiology Laboratory Tests 10/25/24 05:32 10/24/24 09:55 Test 10/25/24 05:32 Range/Units Serum Glucose 105 74-106 mg/dL Problem List Musculoskeletal chest pain / costochondritis (reproducible tenderness, improves with palpation). Stable angina. Exertional worsening, CAD family history. Chest pain likely musculoskeletal (costochondritis vs cervical radiculopathy) versus atypical angina. HEART score: ~4 (moderate risk: history + risk factors, normal troponin, abnormal EKG). ASCVD risk: Elevated due to HTN, obesity, family history. Gastroesophageal reflux / bloating constipation, inability to burp. Pericarditis (less likely no pericardial rub, troponins normal). Arrhythmic risk due to prolonged QTc. Assessment/Plan Continued all current supportive medical care. Morphine for pain management. Nitro SL. Additional plan as per the hospital course. Plan discussed with: Patient AKANKSHA CAPELLAN MD Oct 27, 2024 12:17
--- NOTE | 2024-10-31 07:44 | DVHSR ---
APPROVED REPORT Exam: Nuclear Stress Test Indication: CAD BMI: 0 Stress Test Details Stress Test: Pharmacologic stress testing performed using 0.4 mg of regadenoson per 5 mL given IV ov er 10 seconds. HR Resting HR: 67 bpmMax Heart Rate (APMHR): 164.515148 bpm Max HR Achieved: 108 bpmTarget HR (85% APMHR): 139.986470 bpm % of APMHR: 65.85 Recovery HR: 72 bpm BP Resting BP: 134/82 mmHg Recovery BP: 140/80 mmHg ECG Resting ECG: Sinus Rhythm Clinical Reason for Termination: Completed protocol Nurse Comments Recieved pt. from [employer]. A/Ox4 on RA. Connected to conveyor monitor, VS stable. PIV flushes well. Reviewed POC. Pt. verbalized understanding of procedure including risks and side ef fects, agrees for stress testing. Lexiscan stress test performed per protocol. [employer] tech administered Cardiolite. Pt. tolerated well . Pt. stable, no change on exam. VS returned to baseline. Transferred to [employer] via wheelchair w/ te ch. Stress ECG Conclusion lvef 71% normal perfusion scan NM EXAM: Myocardial Perfusion REST/STRESS Imaging Protocol: Rest Tc-99m/Stress Tc-99m 2 days Resting Data Rest SPECT myocardial perfusion imaging was performed in supine position 60 minutes following the int ravenous injection of 15.1 mCi of Tc-99m Sestamibi. Time of rest injection: 13:12 Date: 10/25/2024 Time of rest imagin:12 Date: 10/26/2024 Administration Route: IV Administration Site: Left AC Pharmacologic Stress Pharmacologic stress test was performed by injecting Regadenoson 0.4 mg IV push followed by the intra venous injection of 24.1 mCi of Tc-99m Sestamibi. Time of stress injection: 08:01 Date: 10/26/2024 Time of stress imagin:01 Date: 10/26/2024 Administration Route: IV Administration Site: Right Arm Gated Stress SPECT was performed 60 minutes after stress injection. The images were gated to evaluate regional wall motion and calculate left ventricular ejection fracti on. Stress only was performed in the Supine position. Nuclear Conclusion Nuclear Findings: negative for ischemia lvef 71% normal perfusion scan
== END 2024-10-27 16:15 | disposition left against medical advice (07) | DRG 203 ==
LOC: ER 09:35 → EDBD 09:35 → OVERFLOW 19:15 → TELE-EAST 22:04
PROVIDERS: ADMIT Internal Medicine; ATTEND Internal Medicine
DX: M94.0 Chondrocostal junction syndrome [Tietze] (principal); I24.9 Acute ischemic heart disease, unspecified; E66.9 Obesity, unspecified; I10 Essential (primary) hypertension; Z53.29 Procedure and treatment not carried out because of patient's decision for other reasons; K21.9 Gastro-esophageal reflux disease without esophagitis; K59.00 Constipation, unspecified; Z68.30 Body mass index [BMI] 30.0-30.9, adult; Z79.899 Other long term (current) drug therapy; Z87.440 Personal history of urinary (tract) infections; Z82.49 Family history of ischemic heart disease and other diseases of the circulatory system; Z82.0 Family history of epilepsy and other diseases of the nervous system; Z79.82 Long term (current) use of aspirin; M54.12 Radiculopathy, cervical region
CPT/HCPCS: 36415; 71045; 78452; 80048; 80061; 81001; 83036; 83735; 84443; 84484; 85025; 85652; 86141; 93005; 93017; 93306; 99291; 99292; G0378; J2405